=== PATIENT | male | born 1985 ===

== ENCOUNTER 2023-11-11 20:40 | Emergency (ER) | payer OTHER, SELFPAY ==
--- NOTE | ~2023-11-11 | XR_ITS ---
EXAMINATION: XR CHEST CLINICAL INFORMATION: Pain. COMPARISON: None available. TECHNIQUE: 2 views of the chest were obtained. FINDINGS: The trachea is in normal anatomic position. The heart is normal in size. The lungs are clear. The pleural spaces are clear. No pneumothorax. No acute osseous abnormality. XR/XR chest 2V IMPRESSION: No acute cardiopulmonary disease.
[2023-11-11 20:48] VITALS: BP 106/77; PULSE 112; RESP 16; TEMP 38; O2SAT 97; BMI 27.1
--- NOTE | 2023-11-11 20:50 | ED.GENADULT ---
HPI - General Adult General Stated complaint: fever Related Data Allergies Allergy/AdvReac Type Severity Reaction Status Date / Time No Known Allergies Allergy Verified 11/11/23 20:52 Course Course Course Narrative: RME- 38 year old male presents for evaluation of cough and fever since last , 4 days ago. His family had similar symptoms. Plan for viral swabs and chest x-ray
[2023-11-11 22:20] LABS: Influenza A PCR NEGATIVE (Negative); Influenza B PCR POSITIVE (Negative); Resp Syncy Virus RNA Qual PCR NEGATIVE (Negative); SARS COV2 PCR INHOUSE NEGATIVE (Negative)
== END 2023-11-12 01:32 | disposition left against medical advice (07) ==
PROVIDERS: Physician Assistant; Emergency Provider Emergency Medicine
DX: R50.9 Fever, unspecified (principal)
CPT/HCPCS: 0241U; 71046; 99281; 99283

== ENCOUNTER 2023-11-14 22:58 | Emergency (ER) | payer OTHER, SELFPAY ==
[2023-11-14 23:02] VITALS: BP 111/76; PULSE 87; RESP 16; TEMP 36.3; O2SAT 100; BMI 21.3
[2023-11-15 00:15] LABS: Influenza A PCR NEGATIVE (Negative); Influenza B PCR POSITIVE (Negative); Resp Syncy Virus RNA Qual PCR NEGATIVE (Negative); SARS COV2 PCR INHOUSE NEGATIVE (Negative)
== END 2023-11-15 02:32 | disposition left against medical advice (07) ==
PROVIDERS: Emergency Provider Emergency Medicine
DX: R22.1 Localized swelling, mass and lump, neck (principal)
CPT/HCPCS: 0241U; 99281; 99283